=== PATIENT | female | born 1980 | race Caucasian/White ===

== ENCOUNTER → 2019-01-16 | Day surgery (SDC) | payer OTHER ==
--- NOTE | 2019-01-17 13:59 | PATH ---
Surgical Pathology Report Patient Name: GUS DYKES [facility]. Rec. #: [id number] /Age/Gender: 1980 (Age: 38) / F Account: [id number] Location: [facility] Taken: 01/16/2019 Received: 01/16/2019 Reported: 01/17/2019 Physicians: Seble Gonzalez M.D. Specimen(s) Received RIGHT BREAST CORE BIOPSY Clinical History Ultrasound findings: Probably benign Final Diagnosis BREAST, RIGHT, 9:30, ULTRASOUND GUIDED CORE BIOPSY: FIBROADENOMA. Electronically Signed Shivani Delong M.D. Gross Description Received in formalin labeled "right breast 9:30," are 4 crockett-yellow, cylindrical portions of fibroadipose tissue ranging from 0.2-1.5 cm in length and averaging 0.1 cm in diameter. The specimens are submitted in toto in one cassette. Time to formalin fixation: Less than one minute Total formalin fixation time: Approximately 6 hours. /01/16/2019 [facility]01/16/2019
== END | disposition home or self-care (01) ==
LOC: JRADUS-SUR 10:28
PROVIDERS: ATTEND Internal Medicine
PROC: 0H9T3ZX Drainage of Right Breast, Percutaneous Approach, Diagnostic (ICD-10-PCS; principal; 2019-01-16)
DX: D24.1 Benign neoplasm of right breast (principal)
CPT/HCPCS: 19083; 87899; 88305-TC; A4648